=== PATIENT | female | born 1945 | race Caucasian/White ===

== ENCOUNTER 2017-04-22 16:38 | Emergency (ER) | payer OTHER ==
[2017-04-25] MEDS ORDERED: PRILOSEC OTC20 MG PO (08:43)
[2017-04-25] MEDS ORDERED: NORCO 5-325 TA1 EACH PO (08:46)
[2017-04-25] MEDS ORDERED: ZOLOFT25 MG PO (08:47)
[2017-04-25] MEDS ORDERED: VITAMIN D250000 UNIT PO (08:48)
[2017-04-25] MEDS ORDERED: CALCIUM500 MG PO (08:49)
[2017-04-25] MEDS ORDERED: PERCOCET 7.5-31 EACH PO (13:45)
== END 2017-04-22 18:20 | disposition home or self-care (01) ==
LOC: ER1 16:38
DX: S42.402A Unspecified fracture of lower end of left humerus, initial encounter for closed fracture (principal); K21.9 Gastro-esophageal reflux disease without esophagitis; W01.0XXA Fall on same level from slipping, tripping and stumbling without subsequent striking against object, initial encounter; Y92.830 Public park as the place of occurrence of the external cause; Z88.2 Allergy status to sulfonamides
CPT/HCPCS: 29125; 73080; 73090; 73110; 96372; 99283; J2270

== ENCOUNTER → 2017-04-23 | Outpatient (CLI) | payer OTHER ==
[~2017-04-23] MED LIST: CALCIUM500 MG PO; NORCO 5-325 TA1 EACH PO; PERCOCET 7.5-31 EACH PO; PRILOSEC OTC20 MG PO; VITAMIN D250000 UNIT PO; ZOLOFT25 MG PO
== END ==
LOC: KOH-I 11:20
DX: S42.402A Unspecified fracture of lower end of left humerus, initial encounter for closed fracture (principal); S52.022A Displaced fracture of olecranon process without intraarticular extension of left ulna, initial encounter for closed fracture; S42.132A Displaced fracture of coracoid process, left shoulder, initial encounter for closed fracture
CPT/HCPCS: 73200

== ENCOUNTER → 2017-04-25 | Day surgery (SDC) | payer MEDICARE ==
[2017-04-25 09:01] LABS: HEMOGLOBIN 11.4 gm/dl (12.3-15.3); RED BLOOD COUNT 3.83 M/UL (4.00-5.10); WHITE BLOOD COUNT 6.8 K/UL (4.5-11.0)
[2017-04-25 09:21] LABS: BUN/CREATININE RATIO 36 (0-10)
== END | disposition home or self-care (01) ==
LOC: OR 07:55
PROVIDERS: Orthopaedic Surgery
PROC: 0PSJ04Z Reposition Left Radius with Internal Fixation Device, Open Approach (ICD-10-PCS; 2017-04-25)
PROC: 0PSL04Z Reposition Left Ulna with Internal Fixation Device, Open Approach (ICD-10-PCS; principal; 2017-04-25 09:45)
DX: S52.022A Displaced fracture of olecranon process without intraarticular extension of left ulna, initial encounter for closed fracture (principal); S52.122A Displaced fracture of head of left radius, initial encounter for closed fracture; K21.9 Gastro-esophageal reflux disease without esophagitis; Z85.828 Personal history of other malignant neoplasm of skin; Z82.49 Family history of ischemic heart disease and other diseases of the circulatory system; Z88.2 Allergy status to sulfonamides; Z79.82 Long term (current) use of aspirin; Z79.891 Long term (current) use of opiate analgesic; Z79.899 Other long term (current) drug therapy; W18.09XA Striking against other object with subsequent fall, initial encounter; Y92.830 Public park as the place of occurrence of the external cause
CPT/HCPCS: 36415; 73080; 76000; 80048; 85027; C1713; J0690; J1100; J1885; J2250; J2405; J2710; J2765; J2795; J3010; J7120

== ENCOUNTER → 2022-07-02 | Outpatient (CLI) | payer MEDICARE | LOC: KOH-I 13:19 | DX: M79.671 Pain in right foot (principal) | CPT/HCPCS: 73650 ==